=== PATIENT | female | born 1975 | race Hispanic/Latino ===

== ENCOUNTER 2017-10-22 07:08 | Emergency (ER) | payer OTHER ==
[2017-10-22] MEDS ORDERED: LIDOCAINE HCL 2% 20ML ONE (07:33)
[2017-10-22] MEDS ORDERED: TETANUS/DIPHTHERIA TOXOID [ADULT] 0.5 ML VIAL IM ONE (07:41)
[2017-10-22] MEDS ORDERED: BUPIVACAINE/PF 0.5% 30ML VIAL ONE (08:09)
[2017-10-22] MEDS ORDERED: SODIUM CHLORIDE 0.9% 100 ML IV ONE (10:11)
[2017-10-22] MEDS ORDERED: CEFAZOLIN SODIUM 1 GM VIAL ONE (10:11)
[2017-10-22] MEDS ORDERED: KETOROLAC TROMETHAMINE 30MG/ML ONE (11:29)
== END 2017-10-22 11:46 | disposition home or self-care (01) ==
LOC: EDH 07:08
DX: S61.313A Laceration without foreign body of left middle finger with damage to nail, initial encounter (principal); Z88.0 Allergy status to penicillin; W23.0XXA Caught, crushed, jammed, or pinched between moving objects, initial encounter; Y93.89 Activity, other specified; Y92.098 Other place in other non-institutional residence as the place of occurrence of the external cause; Y99.8 Other external cause status
CPT/HCPCS: 11760; 73130; 90471; 90714; 96365; 96375; 99284; J0690; J1885; J3490 ×2